=== PATIENT | male | born 1985 | race Caucasian/White ===

== ENCOUNTER 2019-09-01 09:52 | Day surgery (SDC) | payer OTHER ==
[2019-08-29 12:09] VITALS: BMI 39.9
[~2019-09-01 09:52] MED LIST: BUPIVACAINE HCL/PF 0.25% (2.5MG/ML) 10 ML VIAL IJ ONE
[2019-09-01] MEDS ORDERED: ACETAMINOPHEN 325 MG TABLET (FP) PO PRN (11:33)
[2019-09-01] MEDS ORDERED: ONDANSETRON 4 MG/2 ML VIAL IVPUSH PRN (11:33)
[2019-09-01] MEDS ORDERED: oxyCODONE HCL 5 MG TABLET PO PRN (11:33)
[2019-09-01] MEDS ORDERED: PROPOFOL 20 ML ONE ×2 (13:37)
[2019-09-01] MEDS ORDERED: ceFAZolin SODIUM 1 GM VIAL ONE (13:47)
[2019-09-01] MEDS ORDERED: DEXAMETHASONE SOD PHOSPHATE 4 MG/1 ML VIAL ONE (13:51)
[2019-09-01] MEDS ORDERED: ONDANSETRON 4 MG/2 ML VIAL ONE (13:51)
[2019-09-01] MEDS ORDERED: KETOROLAC TROMETHAMINE 30 MG/1 ML VIAL ONE (13:51)
[2019-09-01] MEDS ORDERED: BUPIVACAINE HCL/PF 0.25% (2.5MG/ML) 10 ML VIAL IJ ONE (14:12)
[2019-09-01 15:09] VITALS: TEMP 97.7
[2019-09-01] MEDS ORDERED: oxyCODONE HCL 5 MG TABLET ONE (15:13)
[2019-09-01 16:37] VITALS: BP 118/79; PULSE 88
--- NOTE | 2019-09-01 16:50 | OP ---
DATE OF OPERATION: 09/01/2019 Done at [facility] SURGEON: Rom Marinelli MD TESTER WASTE DISPOSAL LEAKAGE: RODRI Lamar PREOPERATIVE DIAGNOSES: 1. Left knee medial and lateral meniscal tear. 2. Left knee cartilage injury. 3. Left knee synovitis. POSTOPERATIVE DIAGNOSES: 1. Left knee medial and lateral meniscal tear. 2. Left knee cartilage injury. 3. Left knee synovitis. PROCEDURE: 1. Left knee arthroscopy with partial meniscectomy, medial and lateral meniscus, CPT code 57765. 2. Left knee arthroscopy with chondroplasty, CPT code 65104. 3. Left knee arthroscopy with synovectomy, CPT code 44284. FINDINGS: 1. Medial meniscus [id number]-er-[id number] horn tear. 2. Lateral meniscus posterior horn tear, minor. 3. Synovitis patellofemoral medial and lateral notch area. 4. Grade 4 cartilage injury 2 cm x 8 cm to the central portion of the medial femoral condyle with surrounding cartilage flaps. 5. ACL and PCL intact. 6. Minor grade 1 changes lateral joint line. 7. Central grade 1-2 cartilage injury patella, patellofemoral trochlea, small area of grade 2 changes, and plica adhesion. PROCEDURE: Informed consent was obtained. The patient came to the operating room, where the lower extremity was prepped and draped in a sterile fashion. A tourniquet was placed on the upper thigh, but not inflated. Using standard arthroscopic technique, a lateral incision and portal was made to allow for introduction of the camera into the suprapatellar bursa. This was then taken to the medial joint line, where under direct visualization, a medial incision and portal was made. Excessive synovium noted in the medial, lateral and patellofemoral and notch area was removed by an upbiter, shaver and Bovie cautery. This was found to bring in inflammatory tissue into the joint surface, a source of pain and dysfunction. Probing of the medial and lateral meniscus found tears, as described in the findings. These were removed with the upbiter and shaver and taken back to a stable rim. Grade 2 to 3 degenerative changes were treated with a chondroplasty, removing all flaking surfaces with low-setting Bovie along the periphery to prevent further flaking. Grade 4 changes, as noted, were treated with an abrasoplasty, creating a bleeding surface at the bone/cartilage interface. Aggressive debridement with shaver/kishan created bleeding surface. Micro fracture also done when indicated in findings. All areas of the knee were once again reexamined. The knee was then drained and a single suture was placed in all portals. A sterile dressing was placed and the patient was transferred to the recovery room without complication. The PA listed above was present and assisted at surgery. Their presence was absolutely medically necessary for the completion of the procedure. They helped hold the arthroscopy, pass instruments (and implants when indicated) and the procedure could not have been completed without their assistance. ROM MARINELLI M.D. [id number]
--- NOTE | 2019-09-06 13:33 | PATH ---
Surgical Pathology Report Patient Name: ALEX PHOENIX Med. Rec. #: [id number] /Age/Gender: 1985 (Age: 34) / M Account: [id number] Location: [facility] AMBULATORY Taken: 09/01/2019 Received: 09/01/2019 Reported: 09/06/2019 Physicians: Rom Ng M.D. Specimen(s) Received LEFT KNEE SHAVINGS Clinical History Left knee meniscus derangement Final Diagnosis KNEE, LEFT, ARTHROSCOPIC SHAVINGS: FIBROSYNOVIAL TISSUE, CARTILAGE AND BONE. Electronically Signed Kendal Lamb M.D. Gross Description Received in formalin, labeled "left knee shavings," is a 5.5 x 4.0 x 0.6 cm. aggregate of krishna-yellow soft tissue fragments. A claims customer service representative portion is submitted in one cassette. 09/04/2019 saudi09/04/2019
== END 2019-09-01 16:30 | disposition home or self-care (01) ==
LOC: FASU 09:52
PROVIDERS: ATTEND Orthopaedic Surgery
PROC: 0SBD4ZZ Excision of Left Knee Joint, Percutaneous Endoscopic Approach (ICD-10-PCS; 2019-09-01)
PROC: 0SBD4ZZ Excision of Left Knee Joint, Percutaneous Endoscopic Approach (ICD-10-PCS; 2019-09-01)
PROC: 0SBD4ZZ Excision of Left Knee Joint, Percutaneous Endoscopic Approach (ICD-10-PCS; principal; 2019-09-01 13:56)
DX: S83.242A Other tear of medial meniscus, current injury, left knee, initial encounter (principal); S83.282A Other tear of lateral meniscus, current injury, left knee, initial encounter; S83.8X2A Sprain of other specified parts of left knee, initial encounter; M65.862 Other synovitis and tenosynovitis, left lower leg; X58.XXXA Exposure to other specified factors, initial encounter; Y93.9 Activity, unspecified; Y92.9 Unspecified place or not applicable
CPT/HCPCS: 88304-TC; 94760